=== PATIENT | male | born 1975 | race American Indian/Alaskan Native ===

== ENCOUNTER 2018-04-07 08:30 | Emergency (ER) | payer OTHER ==
[2018-04-07 09:17] LABS: Basophils # (Auto) 0.1 K/mm3 (0.0-0.1); Basophils % (Auto) 1.4 % (0.0-1.8); Eosinophils # (Auto) 0.2 K/mm3 (0.0-0.4); Hematocrit 37.8 % (35.5-45.6); Hemoglobin 12.1 gm/dl (11.8-15.2); Lymphocytes # (Auto) 2.6 K/mm3 (1.2-5.4); Mean Corpuscular HGB Conc 32 % (32-34); Mean Corpuscular Volume 79 fl (84-94); Monocytes % (Auto) 10.1 % (0.0-7.3); Platelet Count 266 K/mm3 (140-440); Red Cell Distribution Width 16.7 % (13.2-15.2)
[2018-04-07 09:20] LABS: Mean Corpuscular Hemoglobin 25 pg (28-32)
[2018-04-07 09:58] LABS: BUN/Creatinine Ratio 13; Blood Urea Nitrogen 20 mg/dL (9-20); Calcium 8.9 mg/dL (8.4-10.2); Hemolysis Index 12
[2018-04-07] MEDS ORDERED: APRESOLINE IV ONE (11:08)
[2018-04-07] MEDS ORDERED: NACL 0.9% 500 ML 500 ML IV ONE (11:08)
--- NOTE | 2018-04-07 11:08 | Emergency Department Report ---
ED General Adult HPI - General Chief complaint: High BP Stated complaint: LEFT FLANK PAIN Time Seen by Provider: 04/07/18 10:06 Source: patient Mode of arrival: Ambulatory Limitations: No Limitations - History of Present Illness Initial comments: This is a 42-year-old male who was previously unknown to this provider. He has a past medical history of hypertension and diabetes. Medical history of kidney stones. His primary care doctor is Dr. Lazo He presents to the ER with a primary complaint of resolved left flank pain. Started this morning. It is nontraumatic. It does not radiate anywhere. It had no exacerbating or relieving factors. He denies testicular pain, dysuria, urinary frequency. He reports the pain was so intense that it occasionally took his breath away. No DVT or pulmonary embolus risk factors. No chest pain. Not currently having shortness of breath at this time. Patient did admits to recreational cocaine consumption over the weekend. He denies coingestions. -: Gradual Location: back Severity scale (0 -10): 0 Consistency: now resolved Improves with: none Worsens with: none Associated Symptoms: shortness of breath, other (shortness of breath is now resolved). denies: confusion, chest pain, cough, diaphoresis, fever/chills, headaches, loss of appetite, malaise, nausea/vomiting, rash, seizure, syncope, weakness - Related Data Home Medications Medication Instructions Recorded Confirmed Last Taken Aspirin/Acetaminophen/Caffeine 1 each PO Q12H PRN 04/07/18 04/07/18 Unknown [Goodmaryanne's Ex-Str Powder Packet] Ibuprofen [Motrin] 800 mg PO Q4-6H PRN 04/07/18 04/07/18 Unknown Lisinopril [Prinivil] 5 mg PO QDAY 04/07/18 04/07/18 Unknown Sitagliptin Phos/Metformin HCl 1 tab PO BID 04/07/18 04/07/18 04/06/18 [Janumet 50-1,000 mg] Previous Rx's Medication Instructions Recorded Last Taken Type Acetaminophen [Tylenol Arthritis] 650 mg PO Q6HR PRN #30 tablet.er 04/07/18 Unknown Rx Ibuprofen [Motrin] 600 mg PO Q8H PRN #30 tablet 04/07/18 Unknown Rx Levofloxacin [Levaquin] 750 mg PO QDAY #10 tablet 04/07/18 Unknown Rx Metoclopramide [Reglan] 10 mg PO QID PRN #30 tablet 04/07/18 Unknown Rx Tamsulosin [Flomax] 0.4 mg PO QDAY #30 cap 04/07/18 Unknown Rx oxyCODONE [Roxicodone] 5 mg PO Q6HR PRN #15 tablet 04/07/18 Unknown Rx Allergies Allergy/AdvReac Type Severity Reaction Status Date / Time No Known Allergies Allergy Verified 04/07/18 08:42 ED Review of Systems ROS: Stated complaint: LEFT FLANK PAIN Other details as noted in HPI Comment: All other systems reviewed and negative ED Past Medical Hx - Past Medical History Previous Medical History?: Yes Hx Hypertension: Yes Hx Diabetes: Yes - Surgical History Past Surgical History?: No - Social History Smoking Status: Never Smoker Substance Use Type: Alcohol, Cocaine - Medications Home Medications: Home Medications Medication Instructions Recorded Confirmed Last Taken Type Acetaminophen [Tylenol Arthritis] 650 mg PO Q6HR PRN #30 tablet.er 04/07/18 Unknown Rx Aspirin/Acetaminophen/Caffeine 1 each PO Q12H PRN 04/07/18 04/07/18 Unknown History [Goodmaryanne's Ex-Str Powder Packet] Ibuprofen [Motrin] 600 mg PO Q8H PRN #30 tablet 04/07/18 Unknown Rx Ibuprofen [Motrin] 800 mg PO Q4-6H PRN 04/07/18 04/07/18 Unknown History Levofloxacin [Levaquin] 750 mg PO QDAY #10 tablet 04/07/18 Unknown Rx Lisinopril [Prinivil] 5 mg PO QDAY 04/07/18 04/07/18 Unknown History Metoclopramide [Reglan] 10 mg PO QID PRN #30 tablet 04/07/18 Unknown Rx Sitagliptin Phos/Metformin HCl 1 tab PO BID 04/07/18 04/07/18 04/06/18 History [Janumet 50-1,000 mg] Tamsulosin [Flomax] 0.4 mg PO QDAY #30 cap 04/07/18 Unknown Rx oxyCODONE [Roxicodone] 5 mg PO Q6HR PRN #15 tablet 04/07/18 Unknown Rx ED Physical Exam - General Limitations: No Limitations General appearance: alert, in no apparent distress - Head Head exam: Present: atraumatic, normocephalic - Eye Eye exam: Present: normal appearance, EOMI. Absent: nystagmus - ENT ENT exam: Present: normal exam, normal orophraynx, mucous membranes moist, normal external ear exam - Neck Neck exam: Present: normal inspection, full ROM - Respiratory Respiratory exam: Present: normal lung sounds bilaterally. Absent: respiratory distress - Cardiovascular Cardiovascular Exam: Present: regular rate, normal rhythm, normal heart sounds. Absent: systolic murmur, diastolic murmur, rubs, gallop - GI/Abdominal GI/Abdominal exam: Present: soft, normal bowel sounds. Absent: distended, tenderness, guarding, rebound, rigid - Rectal Rectal exam: Present: deferred - Extremities Exam Extremities exam: Present: normal inspection, full ROM, normal capillary refill. Absent: pedal edema, joint swelling, calf tenderness - Back Exam Back exam: Present: normal inspection, full ROM. Absent: tenderness, CVA tenderness (R), paraspinal tenderness, vertebral tenderness - Neurological Exam Neurological exam: Present: alert, oriented X3, CN II-XII intact, normal gait, other (Extraocular movements intact. Tongue midline. No facial droop. Facial sensation intact to light touch in the V1, V2, V3 distribution bilaterally. 5 and 5 strength in 4 extremities.. Sensation is intact to light touch in 4 extremities.). Absent: motor sensory deficit - Psychiatric Psychiatric exam: Present: normal affect, normal mood - Skin Skin exam: Present: warm, dry, intact, normal color. Absent: rash ED Course Vital Signs 04/07/18 04/07/18 04/07/18 08:42 09:14 09:15 Temperature 97.7 F Pulse Rate 104 H 95 H 94 H Respiratory 24 14 16 Rate Blood Pressure 199/119 158/93 O2 Sat by Pulse 96 95 97 Oximetry 04/07/18 04/07/18 04/07/18 09:30 09:43 09:45 Temperature Pulse Rate 94 H 94 H Respiratory 13 16 17 Rate Blood Pressure 169/93 164/91 O2 Sat by Pulse 99 98 97 Oximetry 04/07/18 04/07/18 04/07/18 10:00 10:15 10:30 Temperature Pulse Rate 90 97 H 92 H Respiratory 18 13 18 Rate Blood Pressure 169/97 168/102 166/99 O2 Sat by Pulse 100 98 Oximetry 04/07/18 04/07/18 04/07/18 10:45 11:01 11:15 Temperature Pulse Rate 91 H Respiratory 19 Rate Blood Pressure 165/110 165/110 165/110 O2 Sat by Pulse 98 99 100 Oximetry 04/07/18 04/07/18 04/07/18 12:00 12:01 12:15 Temperature Pulse Rate 69 Respiratory Rate Blood Pressure 165/110 165/110 154/93 O2 Sat by Pulse 97 98 Oximetry - Reevaluation(s) Reevaluation #1: 04/07/18 12:34 Differential diagnosis, including but not limited to: Renal colic, AAA, mechanical back pain, incidental hypertension and elevated blood pressure Assessment and plan: 42-year-old male with nontraumatic left-sided flank pain, resolved shortness of breath, clear chest x-ray, not having chest pain, with no pulmonary embolus or DVT risk factors who is low risk by well's criteria. He has no CVA tenderness, there is no pulsatile abdominal mass, the x-ray of his chest demonstrates normal mediastinum, and the patient has equal pulses in the bilateral upper and lower extremities. The patient's blood pressure improved without intervention, and he is clinically sober at this time. He is not clinically cocaine intoxicated. He was instructed to discontinue cocaine consumption. His EKG was nonspecific, and he can follow up with outpatient cardiology for this on an elective basis. A CT scan of the abdomen and pelvis demonstrated an obstructing left-sided 3.5 mm UVJ stone. His urinalysis demonstrated white blood cells, 1+ bacteria, but has no urinary symptoms. We will discuss with urology. At this point in time, the patient is nonfebrile, nontoxic, but acutely well appearing and has a benign physical examination, so I believe that a trial of outpatient management would be suitable and reasonable at this time. Reevaluation #2: 04/07/18 13:21 Patient continues to rest comfortably. Repeat EKG is unchanged, with no chest pain. He is tolerating oral feeds and he is nontoxic appearing. Case was discussed with urology at this facility, Dr. Lester, who was amenable to seeing the patient's later on this week as a follow-up. Both of us are of the opinion that the patient does not require emergent urologic stent or consultation. The patient was counseled to discontinue cocaine consumption, and to follow up with outpatient urology this week, and cardiology within the next few weeks for evaluation of his abnormal EKG. ED Medical Decision Making - Lab Data Result diagrams: 04/07/18 09:07 04/07/18 09:07 Vital Signs 04/07/18 04/07/18 04/07/18 08:42 09:14 09:15 Temperature 97.7 F Pulse Rate 104 H 95 H 94 H Respiratory 24 14 16 Rate Blood Pressure 199/119 158/93 O2 Sat by Pulse 96 95 97 Oximetry 04/07/18 04/07/18 04/07/18 09:30 09:43 09:45 Temperature Pulse Rate 94 H 94 H Respiratory 13 16 17 Rate Blood Pressure 169/93 164/91 O2 Sat by Pulse 99 98 97 Oximetry 04/07/18 04/07/18 04/07/18 10:00 10:15 10:30 Temperature Pulse Rate 90 97 H 92 H Respiratory 18 13 18 Rate Blood Pressure 169/97 168/102 166/99 O2 Sat by Pulse 100 98 Oximetry 04/07/18 04/07/18 04/07/18 10:45 11:01 11:15 Temperature Pulse Rate 91 H Respiratory 19 Rate Blood Pressure 165/110 165/110 165/110 O2 Sat by Pulse 98 99 100 Oximetry 04/07/18 04/07/18 04/07/18 12:00 12:01 12:15 Temperature Pulse Rate 69 Respiratory Rate Blood Pressure 165/110 165/110 154/93 O2 Sat by Pulse 97 98 Oximetry Lab Results 04/07/18 04/07/18 04/07/18 Range/Units 09:07 09:07 09:07 WBC 9.9 (4.5-11.0) K/mm3 RBC 4.80 (3.65-5.03) M/mm3 Hgb 12.1 (11.8-15.2) gm/dl Hct 37.8 (35.5-45.6) % MCV 79 L (84-94) fl MCH 25 L (28-32) pg MCHC 32 (32-34) % RDW 16.7 H (13.2-15.2) % Plt Count 266 (140-440) K/mm3 Lymph % (Auto) 26.0 (13.4-35.0) % [place] % (Auto) 10.1 H (0.0-7.3) % Eos % (Auto) 2.0 (0.0-4.3) % Baso % (Auto) 1.4 (0.0-1.8) % Lymph # 2.6 (1.2-5.4) K/mm3 [place] # 1.0 H (0.0-0.8) K/mm3 Eos # 0.2 (0.0-0.4) K/mm3 Baso # 0.1 (0.0-0.1) K/mm3 Seg Neutrophils % 60.5 (40.0-70.0) % Seg Neutrophils # 6.0 (1.8-7.7) K/mm3 Sodium 139 (137-145) mmol/L Potassium 3.8 (3.6-5.0) mmol/L Chloride 100.1 (98-107) mmol/L Carbon Dioxide 25 (22-30) mmol/L Anion Gap 18 mmol/L BUN 20 (9-20) mg/dL Creatinine 1.5 (0.8-1.5) mg/dL Estimated GFR > 60 ml/min BUN/Creatinine Ratio 13 % Glucose 184 H (75-100) mg/dL Calcium 8.9 (8.4-10.2) mg/dL Total Creatine Kinase 139 (55-170) units/L Urine Color (Yellow) Urine Turbidity (Clear) Urine pH (5.0-7.0) Ur Specific [place] (1.003-1.030) Urine Protein (Negative) mg/dL Urine Glucose (UA) (Negative) mg/dL Urine Ketones (Negative) mg/dL Urine Blood (Negative) Urine Nitrite (Negative) Urine Bilirubin (Negative) Urine Urobilinogen (<2.0) mg/dL Ur Leukocyte Esterase (Negative) Urine WBC (Auto) (0.0-6.0) /HPF Urine RBC (Auto) (0.0-6.0) /HPF U Epithel Cells (Auto) (0-13.0) /HPF Urine Bacteria (Auto) (Negative) /HPF Urine WBC Clumps /HPF Urine Mucus /HPF 04/07/18 Range/Units 10:25 WBC (4.5-11.0) K/mm3 RBC (3.65-5.03) M/mm3 Hgb (11.8-15.2) gm/dl Hct (35.5-45.6) % MCV (84-94) fl MCH (28-32) pg MCHC (32-34) % RDW (13.2-15.2) % Plt Count (140-440) K/mm3 Lymph % (Auto) (13.4-35.0) % [place] % (Auto) (0.0-7.3) % Eos % (Auto) (0.0-4.3) % Baso % (Auto) (0.0-1.8) % Lymph # (1.2-5.4) K/mm3 [place] # (0.0-0.8) K/mm3 Eos # (0.0-0.4) K/mm3 Baso # (0.0-0.1) K/mm3 Seg Neutrophils % (40.0-70.0) % Seg Neutrophils # (1.8-7.7) K/mm3 Sodium (137-145) mmol/L Potassium (3.6-5.0) mmol/L Chloride (98-107) mmol/L Carbon Dioxide (22-30) mmol/L Anion Gap mmol/L BUN (9-20) mg/dL Creatinine (0.8-1.5) mg/dL Estimated GFR ml/min BUN/Creatinine Ratio % Glucose (75-100) mg/dL Calcium (8.4-10.2) mg/dL Total Creatine Kinase (55-170) units/L Urine Color Yellow (Yellow) Urine Turbidity Clear (Clear) Urine pH 5.0 (5.0-7.0) Ur Specific [place] 1.014 (1.003-1.030) Urine Protein <15 mg/dl (Negative) mg/dL Urine Glucose (UA) 50 (Negative) mg/dL Urine Ketones Neg (Negative) mg/dL Urine Blood Lg (Negative) Urine Nitrite Neg (Negative) Urine Bilirubin Neg (Negative) Urine Urobilinogen < 2.0 (<2.0) mg/dL Ur Leukocyte Esterase Neg (Negative) Urine WBC (Auto) 25.0 H (0.0-6.0) /HPF Urine RBC (Auto) 49.0 (0.0-6.0) /HPF U Epithel Cells (Auto) < 1.0 (0-13.0) /HPF Urine Bacteria (Auto) 1+ (Negative) /HPF Urine WBC Clumps Few /HPF Urine Mucus Few /HPF - EKG Data -: EKG Interpreted by Me EKG shows normal: sinus rhythm Rate: normal - EKG Data When compared to previous EKG there are: previous EKG unavailable Interpretation: nonspecific ST-T wave simin 04/07/18 12:31 Sinus, 96 bpm, normal axis, high left ventricular voltage, T-wave inversion 1, aVL, biphasic T-wave in V4, V5 and V6. Not having chest pain. Abnormal EKG. Not consistent with a STEMI. - Radiology Data Radiology results: report reviewed, image reviewed interpreted by me: X-ray of the chest, interpreted by radiology: No acute disease Print Report Referring Physician: DESIREE HERRING Patient Name: PAULA KUO Date of : 1975 Sex: Male Report Date: 2018-04-07 Report Status: Finalized Findings [facility] [address] [place] [address] Cat Scan Report Signed Patient: PAULA KUO MR#: [id number] : 1975 Acct:[id number] Age/Sex: 42 / M ADM Date: 04/07/18 Loc: ED Attending Dr: Ordering Physician: DESIREE HERRING MD Date of Service: 04/07/18 Procedure(s): CT abdomen pelvis wo con Accession Number(s): [id number] cc: DESIREE HERRING MD FINAL REPORT EXAM: CT ABDOMEN PELVIS WO CON HISTORY: left flank pain htn TECHNIQUE: CT of the abdomen and pelvis without IV contrast. Coronal and sagittal reconstructed imaging provided. PRIORS: None currently available. FINDINGS: ABDOMEN: Kidneys: 3.9 mm stone mid right kidney. 1.8 mm stone inferior right kidney. 1.9 mm stone mid to inferior left kidney. Bvrn-qq-rocwozrg left hydronephrosis extending down to the left UVJ where there is a 3.5 mm stone. No right hydronephrosis or hydroureter. Liver, gallbladder, stomach, spleen, pancreas, and adrenals are unremarkable. There is no abdominal aortic aneurysm. Mild atherosclerotic disease noted. IVC is unremarkable. There is no periaortic or retroperitoneal adenopathy or mass. Uqrj-yj-nncvuaua stool. No wall thickening or inflammatory changes. Terminal ilium is unremarkable. Appendix is normal. Small bowel loops are unremarkable. No obstructive pattern. No free air. No free fluid. Mesentery is unremarkable. Diastasis recti with a superimposed fat-containing umbilical hernia without strangulation. PELVIS: Bladder is unremarkable. No wall thickening. No stone. Mildly prominent prostate. There is no pelvic mass or adenopathy. Inguinal regions are unremarkable. Bones: No suspicious osseous lesions on this limited examination of the skeleton. Metastatic disease better evaluated with bone scan. IMPRESSION: Bilateral renal stones. Obstructing left UVJ stone. Transcribed By: TYM Dictated By: BARRIE SPEAR MD Electronically Authenticated By: BARRIE SPEAR MD Signed Date/Time: 04/07/18 5477 Critical care attestation.: If time is entered above; I have spent that time in minutes in the direct care of this critically ill patient, excluding procedure time. ED Disposition Clinical Impression: Renal colic on left side Disposition: DC-01 TO HOME OR SELFCARE Is pt being admited?: No Does the pt Need Aspirin: No Condition: Stable Instructions: Renal Colic (ED) Additional Instructions: Cultures was sent today, results of be available in the next 3-5 days. Take the pain medication, nausea medication, antibiotics as directed. Do not consume alcohol while taking his medications. Have a primary care doctor contact medical records department to obtain culture results. Refrain from using cocaine and other illegal drugs. These substances are not healthy for the patient. Please note that blood pressure was elevated, and that EKG demonstrated nonspecific abnormalities. Both of these things should be followed up by either her primary care doctor or [employer] within the next 2-3 weeks. Please note that complications of hypertension and elevated blood pressure includes stroke, heart attack, disability, paralysis, loss of quality of life. Return to the ER right away with new pain, worsened pain, migration of pain, fevers, chills, confusion, intractable nausea or vomiting, inability to tolerate liquid feeds. Referrals: PRIMARY CAREMD [Primary Care Provider] - 3-5 Days [facility] [Provider Group] - 3-5 Days [facility] [Provider Group] - 3-5 Days [facility] [Provider Group] - 3-5 Days
[2018-04-07 11:20] LABS: Bacteria,Urine 1+ /HPF (Negative); Bilirubin,Urine NEG (Negative); Blood,Urine LG (Negative); Color,Urine Yellow (Yellow); Mucus,Urine FEW /HPF; Protein,Urine <15 mg/dL mg/dL (Negative); Urobilinogen,Urine < 2.0 mg/dL (<2.0)
--- NOTE | 2018-04-07 12:04 | Cat Scan Report ---
FINAL REPORT EXAM: CT ABDOMEN PELVIS WO CON HISTORY: left flank pain htn TECHNIQUE: CT of the abdomen and pelvis without IV contrast. Coronal and sagittal reconstructed imaging provided. PRIORS: None currently available. FINDINGS: ABDOMEN: Kidneys: 3.9 mm stone mid right kidney. 1.8 mm stone inferior right kidney. 1.9 mm stone mid to inferior left kidney. Ueyq-vr-rgbvncov left hydronephrosis extending down to the left UVJ where there is a 3.5 mm stone. No right hydronephrosis or hydroureter. Liver, gallbladder, stomach, spleen, pancreas, and adrenals are unremarkable. There is no abdominal aortic aneurysm. Mild atherosclerotic disease noted. IVC is unremarkable. There is no periaortic or retroperitoneal adenopathy or mass. Undh-bh-qmwlxpkt stool. No wall thickening or inflammatory changes. Terminal ilium is unremarkable. Appendix is normal. Small bowel loops are unremarkable. No obstructive pattern. No free air. No free fluid. Mesentery is unremarkable. Diastasis recti with a superimposed fat-containing umbilical hernia without strangulation. PELVIS: Bladder is unremarkable. No wall thickening. No stone. Mildly prominent prostate. There is no pelvic mass or adenopathy. Inguinal regions are unremarkable. Bones: No suspicious osseous lesions on this limited examination of the skeleton. Metastatic disease better evaluated with bone scan. IMPRESSION: Bilateral renal stones. Obstructing left UVJ stone.
--- NOTE | 2018-04-07 12:10 | XRay Report ---
ROUTINE CHEST, TWO VIEWS: HISTORY: Shortness of breath. The trachea, heart, mediastinal contour, lung proctor and bony thorax are unremarkable. IMPRESSION: Unremarkable chest x-ray.
[2018-04-07] MEDS ORDERED: ROCEPHIN/NS 1 GM/50 ML 1 GM/50 ML BAG IV ONE (13:21)
[2018-04-07] MEDS ORDERED: cefTRIAXone 1 GM in NACL 0.9% 20 ML IV ONE (13:30)
[2018-04-07 14:04] VITALS: BP 153/105
== END 2018-04-07 14:15 | disposition home or self-care (01) ==
LOC: ED 08:30
DX: N23 Unspecified renal colic (principal); E11.9 Type 2 diabetes mellitus without complications; I10 Essential (primary) hypertension
CPT/HCPCS: 36415; 71046; 74176; 80048; 81001; 82550; 85025; 87086; 93005; 93010; 96374; 96375; 99284; J0360; J0696; J7040

== ENCOUNTER 2019-09-14 16:27 | Emergency (ER) | payer OTHER ==
[2019-09-14 17:12] VITALS: BP 153/87
--- NOTE | 2019-09-14 17:14 | Event Note ---
ED Screening Note Date of service: 09/14/19 Time: 17:10 ED Screening Note: This is a 44 y.o. M. that presents to the ER with right flank pain for 15 hours. Pain started out as sharp and currently dull. Reports pain feel similar to when he had kidney stones. This initial assessment/diagnostic orders/clinical plan/treatment(s) is/are subject to change based on patients health status, clinical progression and re- assessment by fellow clinical providers in the ED. Further treatment and workup at subsequent clinical providers discretion. Patient/guardian urged not to elope from the ED as their condition may be serious if not clinically assessed and managed. Initial orders include: Labs and CT of abdomen pelvis
[2019-09-14 18:09] LABS: Basophils # (Auto) 0.1 K/mm3 (0.0-0.1); Eosinophils # (Auto) 0.1 K/mm3 (0.0-0.4); Eosinophils % (Auto) 0.5 % (0.0-4.3); Hematocrit 37.3 % (35.5-45.6); Hemoglobin 11.5 gm/dl (11.8-15.2); Lymphocytes # (Auto) 1.8 K/mm3 (1.2-5.4); Lymphocytes % (Auto) 15.3 % (13.4-35.0); Mean Corpuscular HGB Conc 31 % (32-34); Mean Corpuscular Volume 82 fl (84-94); Monocytes # (Auto) 1.1 K/mm3 (0.0-0.8); Monocytes % (Auto) 9.3 % (0.0-7.3); Platelet Count 264 K/mm3 (140-440); Red Blood Count 4.55 M/mm3 (3.65-5.03); Red Cell Distribution Width 16.9 % (13.2-15.2)
[2019-09-14 18:27] LABS: Albumin 4.2 g/dL (3.9-5); Calcium 8.8 mg/dL (8.4-10.2)
--- NOTE | 2019-09-14 19:12 | Cat Scan Report ---
CT ABDOMEN AND PELVIS WITHOUT CONTRAST INDICATION / CLINICAL INFORMATION: right flank pain, r/o stones. TECHNIQUE: Axial CT images were obtained through the abdomen and pelvis without IV contrast. All CT scans at [facility] location are performed using CT dose reduction for ALARA by means of automated exposure control. COMPARISON: None available. FINDINGS: LOWER CHEST: No significant abnormality. LIVER: Borderline fatty liver. GALLBLADDER: No significant abnormality. BILE DUCTS: No significant abnormality. PANCREAS: No significant abnormality. SPLEEN: No significant abnormality. ADRENALS: No significant abnormality. RIGHT KIDNEY and URETER: Severe hydronephrosis with focal calculus within the distal right ureter benjamin suring 6 x 4 mm.. LEFT KIDNEY and URETER: No significant abnormality. STOMACH and SMALL BOWEL: No significant abnormality. COLON: No significant abnormality. APPENDIX: No significant abnormality. PERITONEUM: No free fluid. No free air. No fluid collection. LYMPH NODES: No significant adenopathy. AORTA and ARTERIES: No significant abnormality. IVC and VEINS: No significant abnormality. URINARY BLADDER: No significant abnormality. REPRODUCTIVE ORGANS: No significant abnormality. ADDITIONAL FINDINGS: None. SKELETAL SYSTEM: No significant abnormality. IMPRESSION: Obstructive 6 x 4 mm calculus within the distal right ureter causing severe right hydroureteronephros is. Signer Name: Isaac Barajas MD Signed: 09/14/2019 7:08 PM Workstation Name: [id number]
[2019-09-14] MEDS ORDERED: TORADOL IV ONE (19:34)
[2019-09-14] MEDS ORDERED: ZOFRAN IV ONE (19:35)
[2019-09-14] MEDS ORDERED: NACL 0.9% 1000 ML 1,000 ML IV ONE ×2 (19:35→21:30)
[2019-09-14] MEDS ORDERED: MORPHINE IV ONE (21:30)
[2019-09-14] MEDS ORDERED: REGLAN IV ONE (21:30)
[2019-09-14] MEDS ORDERED: FLOMAX PO ONE (21:30)
--- NOTE | 2019-09-14 23:56 | Emergency Department Report ---
ED Abdominal Pain HPI - General Chief Complaint: Abdominal Pain Stated Complaint: RT SIDE PAIN Time Seen by Provider: 09/14/19 17:10 Source: patient Mode of arrival: Ambulatory Limitations: No Limitations - History of Present Illness Initial Comments: Patient is a 44-year-old -Citizen Of [place] male with a history of hypertension, ett-[id number]-[id number] diabetes and chronic recurring kidney stones presents to the ED with complaint of acute onset persistent severe right flank pain that radiates to the right lower quadrant area with intermittent nausea and vomiting for over 12 hours. Patient states that the pain is constant and persistent. Patient denies hematuria, dysuria, urinary frequency and urgency, dizziness, fever, chills, cough, chest pain, shortness of breath, low back pain, testicular pain, penile discharge, diarrhea or headache. Patient states that the last oriented kidney stone was over 4 months ago and had to follow-up with a urol ogist which is within this hospital although he cannot remember his name. Patient states that he has been taking fyoj-wuf-[id number] pain medication with no relief. MD Complaint: abdominal pain, flank pain (Right flank pain) -: Sudden, hour(s) (>12), This morning Location: RLQ, R flank Radiation: RLQ, R flank Migration to: RLQ, R flank Severity scale (0 -10): 7 Quality: cramping, aching, sharp Consistency: constant Improves With: nothing Worsens With: nothing Context: other (H/o chronic kidney stones) Associated Symptoms: denies other symptoms, nausea, vomiting. denies: diarrhea, fever, chills, constipation, dysuria, hematemesis, melena, hematuria, anorexia, syncope - Related Data Home Medications Medication Instructions Recorded Confirmed Last Taken Aspirin/Acetaminophen/Caffeine 1 each PO Q12H PRN 04/07/18 04/07/18 Unknown [[employer] Ex-Str Powder Packet] Ibuprofen [Motrin] 800 mg PO Q4-6H PRN 04/07/18 04/07/18 Unknown Lisinopril [Prinivil] 5 mg PO QDAY 04/07/18 04/07/18 Unknown Sitagliptin Phos/Metformin HCl 1 tab PO BID 04/07/18 04/07/18 04/06/18 [Janumet 50-1,000 mg] Previous Rx's Medication Instructions Recorded Last Taken Type Acetaminophen [Tylenol Arthritis] 650 mg PO Q6HR PRN #30 tablet.er 04/07/18 Unknown Rx Ibuprofen [Motrin] 600 mg PO Q8H PRN #30 tablet 04/07/18 Unknown Rx Metoclopramide [Reglan] 10 mg PO QID PRN #30 tablet 04/07/18 Unknown Rx oxyCODONE [Roxicodone] 5 mg PO Q6HR PRN #15 tablet 04/07/18 Unknown Rx Ketorolac [Toradol] 10 mg PO Q8H PRN #20 tablet 09/15/19 Unknown Rx Ondansetron [Zofran Odt] 4 mg PO Q6HR PRN #21 tab.rapdis 09/15/19 Unknown Rx Oxycodone HCl/Acetaminophen 1 each PO Q6HR PRN #12 tablet 09/15/19 Unknown Rx [Percocet 7.5/325 mg] Tamsulosin [Flomax] 0.4 mg PO QDAY #30 cap 09/15/19 Unknown Rx levoFLOXacin [Levaquin TAB] 750 mg PO QDAY #10 tablet 09/15/19 Unknown Rx Allergies Allergy/AdvReac Type Severity Reaction Status Date / Time No Known Allergies Allergy Verified 04/07/18 08:42 ED Review of Systems ROS: Stated complaint: RT SIDE PAIN Other details as noted in HPI Constitutional: denies: chills, fever Eyes: denies: eye pain, eye discharge, vision change ENT: denies: ear pain, throat pain Respiratory: denies: cough, shortness of breath, wheezing Cardiovascular: denies: chest pain, palpitations Endocrine: no symptoms reported Gastrointestinal: abdominal pain (Right flank, RLQ area), nausea, vomiting. denies: diarrhea Genitourinary: denies: urgency, dysuria Musculoskeletal: denies: back pain, joint swelling, arthralgia Skin: denies: rash, lesions Neurological: denies: headache, weakness, paresthesias Psychiatric: denies: anxiety, depression Hematological/Lymphatic: denies: easy bleeding, easy bruising ED Past Medical Hx - Past Medical History Previous Medical History?: Yes Hx Hypertension: Yes Hx Diabetes: Yes - Surgical History Past Surgical History?: No - Social History Smoking Status: Never Smoker Substance Use Type: None - Medications Home Medications: Home Medications Medication Instructions Recorded Confirmed Last Taken Type Acetaminophen [Tylenol Arthritis] 650 mg PO Q6HR PRN #30 tablet.er 04/07/18 Unknown Rx Aspirin/Acetaminophen/Caffeine 1 each PO Q12H PRN 04/07/18 04/07/18 Unknown History [Goodmary[employer]'s Ex-Str Powder Packet] Ibuprofen [Motrin] 600 mg PO Q8H PRN #30 tablet 04/07/18 Unknown Rx Ibuprofen [Motrin] 800 mg PO Q4-6H PRN 04/07/18 04/07/18 Unknown History Lisinopril [Prinivil] 5 mg PO QDAY 04/07/18 04/07/18 Unknown History Metoclopramide [Reglan] 10 mg PO QID PRN #30 tablet 04/07/18 Unknown Rx Sitagliptin Phos/Metformin HCl 1 tab PO BID 04/07/18 04/07/18 04/06/18 History [Janumet 50-1,000 mg] oxyCODONE [Roxicodone] 5 mg PO Q6HR PRN #15 tablet 04/07/18 Unknown Rx Ketorolac [Toradol] 10 mg PO Q8H PRN #20 tablet 09/15/19 Unknown Rx Ondansetron [Zofran Odt] 4 mg PO Q6HR PRN #21 tab.rapdis 09/15/19 Unknown Rx Oxycodone HCl/Acetaminophen 1 each PO Q6HR PRN #12 tablet 09/15/19 Unknown Rx [Percocet 7.5/325 mg] Tamsulosin [Flomax] 0.4 mg PO QDAY #30 cap 09/15/19 Unknown Rx levoFLOXacin [Levaquin TAB] 750 mg PO QDAY #10 tablet 09/15/19 Unknown Rx ED Physical Exam - General Limitations: No Limitations General appearance: alert, in no apparent distress - Head Head exam: Present: atraumatic, normocephalic, normal inspection - Eye Eye exam: Present: normal appearance, PERRL, EOMI Pupils: Present: normal accommodation - ENT ENT exam: Present: normal exam, normal orophraynx, mucous membranes moist, TM's normal bilaterally, normal external ear exam - Neck Neck exam: Present: normal inspection, full ROM - Respiratory Respiratory exam: Present: normal lung sounds bilaterally. Absent: respiratory distress, wheezes, rales, chest wall tenderness, accessory muscle use, decreased breath sounds, prolonged expiratory - Cardiovascular Cardiovascular Exam: Present: regular rate, normal rhythm, normal heart sounds. Absent: systolic murmur, diastolic murmur, rubs, gallop - GI/Abdominal GI/Abdominal exam: Present: soft, tenderness (RLQ, Right flank), normal bowel sounds. Absent: guarding, rebound, rigid, hyperactive bowel sounds - Rectal Rectal exam: Present: deferred - Extremities Exam Extremities exam: Present: normal inspection, full ROM, normal capillary refill - Back Exam Back exam: Present: normal inspection, full ROM - Neurological Exam Neurological exam: Present: alert, oriented X3, CN II-XII intact, normal gait - Psychiatric Psychiatric exam: Present: normal affect, normal mood - Skin Skin exam: Present: warm, dry, intact, normal color. Absent: rash ED Course Vital Signs 09/14/19 17:11 Temperature 98.6 F Pulse Rate 88 Respiratory 18 Rate Blood Pressure 153/87 O2 Sat by Pulse 98 Oximetry - Reevaluation(s) Reevaluation #1: 09/14/19 23:57 This is a 44-year-old -Citizen Of [place] male with a history of chronic recurrent kidney stones, hypertension and kgn-wdqsffk-qvtdqzedj diabetes who presents to the ED with complaint of acute onset persistent severe right flank pain that radiates to the right lower quadrant area with nausea and vomiting for over 12 hours. In the ED, patient is alert and oriented 3 and is not in distress but appears to be in pain. Lab test results were reviewed and shows acute leukocytosis of 11,700, and elevated creatinine level of 1.9. The rest of the lab test results were nonactionable. Abdomen pelvis CT scan without contrast shows obstructive 6 x 4 mm calculus within the distal right ureter causing severe right hydroureteronephrosis. Patient was treated for pain in the ED, also received 2 L of normal saline IV bolus, with antiemetics and Flomax. Patient was also treated with Levaquin 750 mg by mouth 1. The patient's case was discussed with the urologist on-call for the patient's urologist Dr. Lester, Dr. Celeste Mosley were advised of the patient be treated in the ED with antibiotics, pain medication and Flomax and of the patient be discharged ho ok on pain medications and advised to contact the urologist's office first thing in the morning for further evaluation. 09/15/19 00:00 09/15/19 01:11 ED Medical Decision Making - Lab Data Result diagrams: 09/14/19 17:44 09/14/19 17:44 - Radiology Data Radiology results: report reviewed, image reviewed Findings [facility] [address] [place] [address] Cat Scan Report Signed Patient: PAULA KUO MR#: [id number] : 1975 Acct:[id number] Age/Sex: 44 / M ADM Date: 09/14/19 Loc: ED Attending Dr: Ordering Physician: NIR CLARKE Date of Service: 09/14/19 Procedure(s): CT abdomen pelvis wo con Accession Number(s): [id number] cc: NIR CLARKE CT ABDOMEN AND PELVIS WITHOUT CONTRAST INDICATION / CLINICAL INFORMATION: right flank pain, r/o stones. TECHNIQUE: Axial CT images were obtained through the abdomen and pelvis without IV contrast. All CT scans at this location are performed using CT dose reduction for ALARA by means of automated exposure control. COMPARISON: None available. FINDINGS: LOWER CHEST: No significant abnormality. LIVER: Borderline fatty liver. GALLBLADDER: No significant abnormality. BILE DUCTS: No significant abnormality. PANCREAS: No significant abnormality. SPLEEN: No significant abnormality. ADRENALS: No significant abnormality. RIGHT KIDNEY and URETER: Severe hydronephrosis with focal calculus within the distal right ureter measuring 6 x 4 mm.. LEFT KIDNEY and URETER: No significant abnormality. STOMACH and SMALL BOWEL: No significant abnormality. COLON: No significant abnormality. APPENDIX: No significant abnormality. PERITONEUM: No free fluid. No free air. No fluid collection. LYMPH NODES: No significant adenopathy. AORTA and ARTERIES: No significant abnormality. IVC and VEINS: No significant abnormality. URINARY BLADDER: No significant abnormality. REPRODUCTIVE ORGANS: No significant abnormality. ADDITIONAL FINDINGS: None. SKELETAL SYSTEM: No significant abnormality. IMPRESSION: Obstructive 6 x 4 mm calculus within the distal right ureter causing severe rig ht hydroureteronephrosis. Signer Name: Isaac Barajas MD Signed: 09/14/2019 7:08 PM Workstation Name: [id number] Transcribed By: BC Dictated By: Isaac Barajas MD Electronically Authenticated By: Isaac Barajas MD Signed Date/Time: 09/14/191907 DD/ 06 TD/TT: - Medical Decision Making This is a 44-year-old -Citizen Of [place] male with a history of chronic recurrent kidney stones, hypertension and sea-xjqqgll-zwkpfqrpr diabetes who presents to the ED with complaint of acute onset persistent severe right flank pain that radiates to the right lower quadrant area with nausea and vomiting for over 12 hours. In the ED, patient is alert and oriented 3 and is not in distress but appears to be in pain. Lab test results were reviewed and shows acute leukocytosis of 11,700, and elevated creatinine level of 1.9. The rest of the lab test results were nonactionable. Abdomen pelvis CT scan without contrast shows obstructive 6 x 4 mm calculus within the distal right ureter causing severe right hydroureteronephrosis. Patient was treated for pain in the ED, also received 2 L of normal saline IV bolus, with antiemetics and Flomax. Patient was also treated with Levaquin 750 mg by mouth 1. The patient's case was discussed with the urologist on-call for the patient's urologist Dr. Lester, Dr. Celeste Mosley were advised of the patient be treated in the ED with antibiotics, pain medication and Flomax and of the patient be discharged home on pain medications and advised to contact the urologist's office first thing in the morning for further evaluation. - Differential Diagnosis Right flank pain; Kidney stones, Appendicitis; Colitis; UTI Critical care attestation.: If time is entered above; I have spent that time in minutes in the direct care of this critically ill patient, excluding procedure time. ED Disposition Clinical Impression: Acute abdominal pain in right flank, Kidney stone on right side, Acute urinary tract infection Disposition: TO HOME OR SELFCARE Is pt being admited?: No Does the pt Need Aspirin: No Condition: Stable Instructions: Kidney Stones (ED), Acute Nausea and Vomiting (ED), Flank Pain (ED) Additional Instructions: Take medication with food, drink plenty of fluids and follow-up with your urologist the next 24-48 hours for reevaluation. Contact your urologist office first thing in the morning to schedule an appointment for follow-up. Return to the ED immediately if symptoms get worse. Prescriptions: Tamsulosin [Flomax] 0.4 mg PO QDAY #30 cap levoFLOXacin [Levaquin TAB] 750 mg PO QDAY #10 tablet Oxycodone HCl/Acetaminophen [Percocet 7.5/325 mg] 1 each PO Q6HR PRN #12 tablet PRN Reason: Pain Ketorolac [Toradol] 10 mg PO Q8H PRN #20 tablet PRN Reason: Pain Ondansetron [Zofran Odt] 4 mg PO Q6HR PRN #21 tab.rapdis PRN Reason: Nausea Referrals: RONEY SAGE MD [Staff Physician] - 3-5 Days Time of Disposition: 00:03 Print Language: CYMRO
[2019-09-15] MEDS ORDERED: LEVAQUIN PO ONE (00:27)
[2019-09-15 01:13] LABS: Bilirubin,Urine NEG (Negative); Blood,Urine MOD (Negative); Color,Urine Yellow (Yellow); Mucus,Urine FEW /HPF; Protein,Urine <15 mg/dL mg/dL (Negative); Urobilinogen,Urine < 2.0 mg/dL (<2.0)
== END 2019-09-15 01:40 | disposition home or self-care (01) ==
LOC: ED 16:27
DX: N20.0 Calculus of kidney (principal); N39.0 Urinary tract infection, site not specified; I10 Essential (primary) hypertension; Z79.899 Other long term (current) drug therapy
CPT/HCPCS: 36415; 74176; 80053; 81001; 83690; 85025; 96361; 96374; 96375; 99284; J1885; J2270; J2405; J2765; J7030